=== PATIENT | female | born 1955 | race African-American/Black ===

== ENCOUNTER 2022-05-31 09:33 | Day surgery (SDC) | payer OTHER ==
[2022-05-31] MEDS ORDERED: FERRIC CARBOXYMALTOSE 750 MG in SODIUM CHLORIDE 250 ML IVPB SCH (10:00)
[2022-05-31 11:14] VITALS: BP 116/62; PULSE 84; RESP 16; TEMP 98.6
== END 2022-05-31 11:38 | disposition home or self-care (01) ==
LOC: FINFUSION 09:33 → FM/S 09:36 → FINFUSION 11:38
PROVIDERS: ATTEND Family Medicine
PROC: 3E033GC Introduction of Other Therapeutic Substance into Peripheral Vein, Percutaneous Approach (ICD-10-PCS; principal; 2022-05-31)
DX: D50.9 Iron deficiency anemia, unspecified (principal)
CPT/HCPCS: 96365; J1439

== ENCOUNTER 2022-06-07 10:05 | Day surgery (SDC) | payer OTHER ==
[2022-06-07] MEDS ORDERED: FERRIC CARBOXYMALTOSE 750 MG in SODIUM CHLORIDE 250 ML IVPB SCH (10:30)
[2022-06-07 11:34] VITALS: BP 115/59; PULSE 80; RESP 18; TEMP 98.5
== END 2022-06-07 11:50 | disposition home or self-care (01) ==
LOC: FM/S 10:05 → FINFUSION 10:05
PROVIDERS: ATTEND Family Medicine
PROC: 3E033GC Introduction of Other Therapeutic Substance into Peripheral Vein, Percutaneous Approach (ICD-10-PCS; principal; 2022-06-07)
DX: D50.9 Iron deficiency anemia, unspecified (principal)
CPT/HCPCS: 96365; J1439